=== PATIENT | male | born 1945 | race Two or more races ===

== ENCOUNTER 2018-06-15 13:06 | Emergency (ER) | payer MEDICARE, MEDICAID ==
[~2018-06-15] VITALS: Ht 190.5 cm; Wt 86.2 kg
[~2018-06-15 13:06] MED LIST: AMLODIPINE-BEN1 EAC1 ORAL; ARTIFICIAL TEA1 EAC3 BOTH EYES; ASPIRIN EC81 MG ORAL; AVAPRO75 MG ORAL; BACLOFEN10 MG ORAL; CLONIDINE0.1 MG PO; COLACE100 MG ORAL; COREG12.5 MG ORAL; COREG3.125 MG ORAL; CRESTOR20 MG ORAL; LANTUS SOL100 UNIT/1 SUBQ; LATANOPROST2.5 ML BOTH EYES; LEVEMIR FL100 UNIT/1 SUBQ; LEXAPRO10 MG ORAL; LYRICA25 MG ORAL; METOPROLOL SUCC25 MG ORAL; NORCO 5-325 TA1 EACH ORAL; NORVASC10 MG ORAL; NOVOLOG100 UNIT/4 SQ; OMEPRAZOLE20 M2 ORAL; OYSTER SHELL C1 EA15 PO; PROTONIX20 MG ORAL; RESTASIS1 EACH BOTH EYES; TRAVATAN Z5 ML OP
[2018-06-15] MEDS ORDERED: UNOBMED (13:18)
--- NOTE | 2018-06-15 13:20 | NUR ---
ED Nurse Note: Patient walked into ED from home patient reports having back pain for about a week. patient reports his whole back is hurting. this morning patient had left side facial laceration, superficial, bleeding is controlled. patient stated it happened by razor he was trying to shave patient's vss. no injury noted. no fever or cough noted. patient reports abdominal pain.
[2018-06-15] MEDS ORDERED: Isovue-300 100ml vial INJ PRN (13:45)
[2018-06-15 14:38] LABS: BASOPHILS % (AUTO) 0.8 % (0.0-2.0); EOSINOPHILS % (AUTO) 3.7 % (0.0-3.0); HEMATOCRIT 30.1 % (42.0-52.0); HEMOGLOBIN 9.8 G/DL (14.2-18.0); LYMPHOCYTES % (AUTO) 28.1 % (20.0-45.0); MEAN CORPUSCULAR VOLUME 85 FL (80-99); MONOCYTES % (AUTO) 8.8 % (1.0-10.0); NEUTROPHILS % (AUTO) 58.6 % (45.0-75.0); PLATELET COUNT 133 K/UL (150-450); RED BLOOD COUNT 3.55 M/UL (4.70-6.10); RED CELL DISTRIBUTION WIDTH 16.6 % (11.6-14.8)
[2018-06-15 14:44] LABS: ANION GAP 8 mmol/L (5-15); BLOOD UREA NITROGEN 22 mg/dL (7-18); CALCIUM 9.3 MG/DL (8.5-10.1); CARBON DIOXIDE 29 MMOL/L (21-32); CHLORIDE 104 MMOL/L (98-107); CREATININE 1.9 MG/DL (0.55-1.30); POTASSIUM 4.7 MMOL/L (3.5-5.1); SODIUM 141 MMOL/L (136-145)
[2018-06-15 14:48] LABS: ALANINE AMINOTRANSFERASE 23 U/L (12-78); ALBUMIN 3.3 G/DL (3.4-5.0); ALKALINE PHOSPHATASE 109 U/L (46-116); ASPARTATE AMINO TRANSFERASE 12 U/L (15-37); BILIRUBIN,TOTAL 0.2 MG/DL (0.2-1.0)
--- NOTE | 2018-06-15 14:49 | Emergency Room Report ---
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, BKA LEFT LEG Hx Hypertension: Yes Hx Diabetes: Yes Hx Cancer: No Hx Gastrointestinal Problems: Yes - Gastritis Hx Neurological Problems: Yes Hx Peripheral Neuropathy: Yes (Henrry Lebron MD) Physical Exam Vital Signs Date Time Temp Pulse Resp B/P (MAP) Pulse Ox O2 Delivery O2 Flow Rate FiO2 06/15/18 13:14 98.1 66 18 112/56 94 Room Air (Henrry Lebron MD) Medical Decision Making Diagnostic Impression: Primary Impression: Poorly controlled diabetes mellitus Additional Impressions: Epigastric abdominal pain History of left below knee amputation Renal insufficiency ER Course Patient was endorsed to me by Dr. Lebron. Patient was noted to have epigastric pain generalized weakness. He was noted to have some epigastric abdominal pain. CT of the abdomen pelvis read by radiology showed cardiomegaly with bilateral pleural effusions there are bilateral lower lobe groundglass densities and mild prominent fluid-filled bowel loops. Patient was discussed with Dr. Villafana for [facility]. Patient will be transferred for continuity of care. Labs Test 06/15/18 13:58 06/15/18 15:59 White Blood Count 6.0 K/UL (4.8-10.8) Red Blood Count 3.55 M/UL (4.70-6.10) Hemoglobin 9.8 G/DL (14.2-18.0) Hematocrit 30.1 % (42.0-52.0) Mean Corpuscular Volume 85 FL (80-99) Mean Corpuscular Hemoglobin 27.6 PG (27.0-31.0) Mean Corpuscular Hemoglobin Concent 32.5 G/DL (32.0-36.0) Red Cell Distribution Width 16.6 % (11.6-14.8) Platelet Count 133 K/UL (150-450) Mean Platelet Volume 10.8 FL (6.5-10.1) Neutrophils (%) (Auto) 58.6 % (45.0-75.0) Lymphocytes (%) (Auto) 28.1 % (20.0-45.0) Monocytes (%) (Auto) 8.8 % (1.0-10.0) Eosinophils (%) (Auto) 3.7 % (0.0-3.0) Basophils (%) (Auto) 0.8 % (0.0-2.0) Sodium Level 141 MMOL/L (136-145) Potassium Level 4.7 MMOL/L (3.5-5.1) Chloride Level 104 MMOL/L (98-107) Carbon Dioxide Level 29 MMOL/L (21-32) Anion Gap 8 mmol/L (5-15) Blood Urea Nitrogen 22 mg/dL (7-18) Creatinine 1.9 MG/DL (0.55-1.30) Estimat Glomerular Filtration Rate mL/min (>60) Glucose Level 137 MG/DL (74-106) Calcium Level 9.3 MG/DL (8.5-10.1) Total Bilirubin 0.2 MG/DL (0.2-1.0) Aspartate Amino Transf (AST/SGOT) 12 U/L (15-37) Alanine Aminotransferase (ALT/SGPT) 23 U/L (12-78) Alkaline Phosphatase 109 U/L (46-116) Troponin I 0.015 ng/mL (0.000-0.056) Total Protein 6.7 G/DL (6.4-8.2) Albumin 3.3 G/DL (3.4-5.0) Globulin 3.4 g/dL Albumin/Globulin Ratio 1.0 (1.0-2.7) Lipase 97 U/L (73-393) Urine Color Pale yellow Urine Appearance Clear Urine pH 6 (4.5-8.0) Urine Specific [place] 1.010 (1.005-1.035) Urine Protein Negative (NEGATIVE) Urine Glucose (UA) Negative (NEGATIVE) Urine Ketones Negative (NEGATIVE) Urine Blood Negative (NEGATIVE) Urine Nitrite Negative (NEGATIVE) Urine Bilirubin Negative (NEGATIVE) Urine Urobilinogen Normal MG/DL (0.0-1.0) Urine Leukocyte Esterase Negative (NEGATIVE) (Devin Crocker MD) Last Vital Signs Date Time Temp Pulse Resp B/P (MAP) Pulse Ox O2 Delivery O2 Flow Rate FiO2 06/15/18 13:14 98.1 66 18 112/56 94 Room Air (Henrry Lebron MD) Status: unchanged (Devin Crocker MD) Disposition: XFER SHT-TRM HOSP Condition: Stable Referrals: RICH COLUNGA,REFERRING (PCP) Henrry Lebron MD Jun 15, 2018 14:49 Devin Crocker MD Jun 15, 2018 17:27
[2018-06-15 16:27] LABS: APPEARANCE,URINE CLEAR; BILIRUBIN, URINE NEGATIVE (NEGATIVE); COLOR,URINE PALE YELLOW; GLUCOSE, URINE (UA) NEGATIVE (NEGATIVE); KETONES,URINE NEGATIVE (NEGATIVE); LEUKOCYTE ESTERASE ,URINE NEGATIVE (NEGATIVE); NITRITE,URINE NEGATIVE (NEGATIVE); PH,URINE 6 (4.5-8.0); PROTEIN,URINE NEGATIVE (NEGATIVE); UROBILINOGEN,URINE NORMAL MG/DL (0.0-1.0)
[2018-06-15 16:36] VITALS: BP 119/55
--- NOTE | 2018-06-15 17:00 | Diagnostic Imaging Report ---
Indication: Abdominal pain Technique: Spiral acquisitions obtained through the abdomen and pelvis. No oral contrast utilized, per emergency room physician request. No IV contrast utilized, due to renal insufficiency.. Multiplanar reconstructions were generated. Total dose length product 913.14 mGycm. CTDIvol(s) 15.47 mGy. Dose reduction achieved using automated exposure control Comparison: None. Reference made to abdominal sonogram dated 07/25/2014 Findings: Lack of enteric contrast limits assessment of the GI tract. The appendix is normal. No evidence of diverticulosis or diverticulitis. Small bowel loops are fluid-filled, upper limits of normal in caliber with occasional small bowel feces. No river dilatation, and no transition point. There is a moderate size hiatal hernia. The stomach and duodenum are otherwise unremarkable. Lack of IV contrast limits assessment of the solid organs. The liver, gallbladder, bile ducts, pancreas, adrenals are unremarkable. The spleen demonstrates a small cortical scar and a small cortical calcification. The right kidney is unremarkable. Left kidney demonstrates an upper pole cyst. No retroperitoneal or mesenteric mass or adenopathy. The bladder is mildly distended, equivocally slightly thick walled and equivocal slight infiltration of the pericystic fat. The prostate is enlarged, measuring 5.9 cm transverse by 5.4 cm AP There are bilateral small pleural effusions. The included lung bases demonstrate bilateral lower lobe groundglass opacity and some consolidation. Multiple calcifications are seen in the left lower lobe. Both lower lobes demonstrate cystic spaces. Atelectasis or scarring is seen in the right middle lobe and inferior lingula. The heart is enlarged. There are degenerative changes of the mid lumbar spine. Impression: Limited assessment of the GI tract, due to lack of enteric contrast administration. Mildly prominent fluid-filled small bowel loops, may be normal or could indicate mild enteritis changes. Correlate with clinical findings Equivocal mild bladder wall thickening and pericystic infiltration, could indicate cystitis if real. Correlate with clinical and laboratory findings No definite acute abdominal process otherwise Bilateral pleural effusions. Bilateral posterior lower lobe ground glass opacities may reflect infiltrate or edema Bilateral COPD changes Cardiomegaly. Evidence old granulomatous disease within the lungs and spleen Prostatomegaly Hiatal hernia Other findings as noted, including splenic cortical scarring, left upper pole renal cyst, degenerative spondylosis The CT scanner at [facility] is accredited by the [employer] and the scans are performed using protocols designed to limit radiation exposure to as low as reasonably achievable to attain images of sufficient resolution adequate for diagnostic evaluation.
--- NOTE | 2018-06-15 18:55 | NUR ---
ED Nurse Note: called [facility] [phone], unable to give report.
[2018-06-15 19:01] VITALS: BP 112/55
--- NOTE | 2018-06-15 19:10 | NUR ---
HAND-OFF: Report given to Aileen RN. Patient is stable in bed. Endorsed to Aileen unable to give report to [facility].
--- NOTE | 2018-06-15 19:15 | NUR ---
ED Nurse Note: RECEIVED REPORT FROM AM NURSE TO [facility]ME [facility], PT IN BED RESTING QUIETLY, AROUSES EASILY TO VERBAL STIMULI, PT IS ON CARDIAC MONITORING, HAS PATENT SALINE LOCK, DENIES PAIN, WILL RESUME CARE ORDERED AND PREPARE FOR PT TRANSFER TO ANOTHER HOSPITAL.
--- NOTE | 2018-06-15 19:45 | NUR ---
ED Nurse Note: PLACED CALL TO [facility] AT [phone], S/W CRUZ [place]AP[place] AND GAVE VERBAL REPORT, PT CONTINUES TO REST IN BED, NAD NOTED, WAITING FOR PT TRANSPORTATION.
[2018-06-15 20:25] VITALS: BP 121/57
[2018-06-15] MEDS ORDERED: HYDROcodone/Acetamin 5/325 tab ORAL ONE (21:30)
[2018-06-15 21:35] VITALS: BP 122/65
--- NOTE | 2018-06-15 21:37 | NUR ---
ED Nurse Note: [id number] HAS ARRIVED FOR PT TRANSPORT, REPORT AND PACKET GIVEN TO MUD MIXER OPERATOR MILAN, PT IS ON [facility] AWAKE, ALERT AND ORIENTED X 4, PT SALINE LOCK INTACT AND PATENT, PT C/O HAVING SEVERE PAIN THAT WAS NOT ADDRESSED, MD INFORMED AND PT MEDICATED WITH [facility] BEFORE LEAVING, PT HAS LEFT BKA PROSTETIC AND ALL BELONGINGS WITH HIM, ALSO CANE, V/S STABLE, NO CP, NO SOB OR LABORED BREATHIHNG, NAD NOTED DURING PT TRANSPORT.
[2018-06-15 21:40] VITALS: BP 121/57
--- NOTE | 2018-06-16 09:04 | Diagnostic Imaging Report ---
Indication: Shortness of breath Technique: One view of the chest Comparison: 07/21/2014 Findings: The heart is enlarged. There is bilateral most interstitial edema. There may be a small amount pleural fluid bilaterally. Findings are new since the prior exam. Impression: Cardiomegaly with bilateral interstitial and airspace edema and possible small bilateral pleural effusions
--- NOTE | 2018-06-16 12:28 | Cardiology Report ---
APPROVED REPORT EKG Measurement Heart [id number] Normal sinus rhythm Left bundle branch block Abnormal ECG
== END 2018-06-15 21:42 | disposition short-term general hospital (02) ==
LOC: EMR 13:50
DX: E11.9 Type 2 diabetes mellitus without complications (principal); R10.13 Epigastric pain; Z89.512 Acquired absence of left leg below knee; N28.9 Disorder of kidney and ureter, unspecified; I10 Essential (primary) hypertension; E11.42 Type 2 diabetes mellitus with diabetic polyneuropathy; I51.7 Cardiomegaly; J90 Pleural effusion, not elsewhere classified
CPT/HCPCS: 36415; 71045; 74176; 80053; 81003; 83690; 84484; 85025; 93005; 96374; 99284; J7040; S0028